=== PATIENT | female | born 1955 | race Caucasian/White ===

== ENCOUNTER 2020-04-05 14:13 | Inpatient (IN) ==
[2020-04-05] MEDS ORDERED: Naloxone 0.4 MG/ML INJ IVP PRN (17:29)
[2020-04-05 17:58] LABS: Adenovirus Not Detected (Not Detect); Coronavirus 229E Not Detected (Not Detect); Coronavirus HKU1 Not Detected (Not Detect); Coronavirus NL63 Not Detected (Not Detect); Coronavirus OC43 Not Detected (Not Detect)
[2020-04-05 17:59] LABS: Bordetella Pertussis Not Detected (Not Detect); Chlamydophila pneumoniae Not Detected (Not Detect); Human Metapneumovirus Not Detected (Not Detect); Human Rhinovirus/Enterovirus Not Detected (Not Detect); Influenza A Subtype 2009 H1 Not Detected (Not Detect); Influenza B Not Detected (Not Detect); Mycoplasma pneumoniae Not Detected (Not Detect); Parainfluenza Virus 1 Not Detected (Not Detect); Parainfluenza Virus 2 Not Detected (Not Detect); Parainfluenza Virus 3 Not Detected (Not Detect); Parainfluenza Virus 4 Not Detected (Not Detect); Respiratory Syncytial Virus Not Detected (Not Detect)
[2020-04-05] MEDS ORDERED: Ipratropium/Albuterol Neb 3 ML IH ONE (18:02)
[2020-04-05] MEDS ORDERED: Ipratropium/Albuterol Neb 3 ML IH PRN (18:02)
[2020-04-05 19:57] LABS: ABG Base Excess 6 mEq/L (-2 to 3); ABG HCO3 30 mEq/L (21-27); ABG Oxygen Saturation 85 % (95-98); ABG PCO2 43 mmHg (35-45); ABG PH 7.45 pH Units (7.32-7.45); ABG PO2 48 mmHg (85-104); ABG TCO2 32 mEq/L (20-26)
[2020-04-05] MEDS ORDERED: Vancomycin 500 MG in 0.9 % Sodium Chloride 250 ML IVPB SCH (20:00)
[2020-04-05] MEDS: 0.9 % Sodium Chloride 1,000 ML IVC SCH (20:21)
[2020-04-05] MEDS: Piperacillin/Tazobactam 3.375 GM in 0.9 % Sodium Chloride Mini Bag 100 ML IVPB SCH (20:21)
[2020-04-05] MEDS ORDERED: Acetaminophen 325 MG TABLET PO PRN (20:39)
[2020-04-05] MEDS ORDERED: Ketorolac 15 MG/ML VIAL IVP PRN (20:40)
[2020-04-05] MEDS ORDERED: Melatonin 3 MG TABLET PO PRN (23:56)
[2020-04-06] MEDS: Piperacillin/Tazobactam 3.375 GM in 0.9 % Sodium Chloride Mini Bag 100 ML IVPB SCH ×3 (01:34→17:09)
[2020-04-06 03:42] LABS: Hematocrit 29.4 % (35.3-44.9); Hemoglobin 8.7 g/dL (11.5-15.4); Mean Corpuscular HGB Conc 29.6 g/dL (31.6-35.5); Mean Corpuscular Hemoglobin 26.3 pg (28.0-33.3); Mean Corpuscular Volume 88.8 fL (83.0-100.0); Mean Platelet Volume 10.6 fL (9.4-12.4); Platelet Count 283 K/mcL (140-400); Red Blood Count 3.31 M/mcL (3.82-4.97); Red Cell Distribution Width 16.1 % (11.5-14.5); White Blood Count 11.3 K/mcL (4.3-11.1)
[2020-04-06 03:54] LABS: Alanine Aminotransferase 9 Units/L (7-52); Albumin 2.2 g/dL (3.5-5.7); Albumin/Globulin Ratio 0.7 (1.1-2.2); Alkaline Phosphatase 47 Units/L (34-104); Aspartate Amino Transferase 14 Units/L (13-39); BUN/Creatinine Ratio 54 (6-26); Bilirubin,Total 0.7 mg/dL (0.3-1.0); Blood Urea Nitrogen 25 mg/dL (8-23); Calcium 11.2 mg/dL (8.6-10.3); Carbon Dioxide 30 mEq/L (23-29); Chloride 104 mEq/L (98-107); Globulin 3.3 g/dL (2.4-3.5); Glucose 82 mg/dL (70-105); Magnesium 1.8 mg/dL (1.6-2.6); Osmolality,Calculated 299 (280-300); Phosphorous 2.8 mg/dL (2.7-4.5); Potassium 2.9 mEq/L (3.5-5.1); Sodium 143 mEq/L (136-145); Total Protein 5.5 g/dL (6.4-8.9); eGFR For African Americans > 60 (> 60); eGFR For Non-African Americans > 60 (> 60)
[2020-04-06 04:46] LABS: Lymphocytes # 0.7 K/mcL (0.6-4.6); Monocytes # 0.2 K/mcL (0.0-1.3); Neutrophils # 10.4 K/mcL (1.6-8.9); Platelet Estimate Normal (Normal); Toxic Granulation Present (Not Present)
[2020-04-06] MEDS: 0.9 % Sodium Chloride 1,000 ML IVC SCH ×2 (08:27→14:44)
[2020-04-06] MEDS ORDERED: *HR* HYDROmorphone PF 0.5 MG/0.5 ML SYRINGE IVP PRN (09:49)
[2020-04-06] MEDS ORDERED: Ondansetron 4 MG/2 ML VIAL IVP ONE (09:49)
[2020-04-06] MEDS ORDERED: Lidocaine -MPF 4% 5 ML AMPUL ONE (10:14)
[2020-04-06] MEDS ORDERED: *HR* Propofol 200 MG/20 ML VIAL IVP ONE (10:14)
[2020-04-06] MEDS ORDERED: Lidocaine -MPF 2% 2 ML VIAL ONE (10:14)
[2020-04-06] MEDS ORDERED: *HR* Succinylcholine 200 MG/10 ML VIAL IVP ONE (10:14)
[2020-04-06] MEDS ORDERED: *HR* FentaNYL (PF) 100 MCG/2 ML VIAL ONE (10:14)
[2020-04-06] MEDS ORDERED: Ondansetron 4 MG/2 ML VIAL ONE (10:14)
[2020-04-06] MEDS ORDERED: *HR* OxyCODONE Immed Rel 5 MG TABLET PO PRN ×3 (11:52→15:16)
[2020-04-06] MEDS ORDERED: Nicotine 21 MG PATCH.TD24 TD SCH (13:00)
[2020-04-06] MEDS ORDERED: Megestrol Acetate 400 MG/10 ML UDC PO SCH (14:00)
[2020-04-06] MEDS ORDERED: Naloxone 0.4 MG/ML INJ IVP PRN (14:02)
[2020-04-06] MEDS ORDERED: Melatonin 3 MG TABLET PO PRN (14:02)
[2020-04-06] MEDS ORDERED: Gadolinium Contrast Agent (WT Based) IV PRN (14:28)
[2020-04-06] MEDS: Acetaminophen 325 MG TABLET PO PRN (14:43)
[2020-04-06] MEDS: Nicotine 21 MG PATCH.TD24 TD SCH (17:09)
[2020-04-06] MEDS ORDERED: Isovue-370 500 ML BOTTLE IVP ONE (17:21)
[2020-04-06] MEDS: Ipratropium/Albuterol Neb 3 ML IH PRN (18:38)
[2020-04-06] MEDS: Ketorolac 15 MG/ML VIAL IVP PRN (21:49)
[2020-04-07] MEDS: MethylPREDNISolone 40 MG/ML VIAL IVP SCH ×2 (00:25→09:07)
[2020-04-07] MEDS: Acetaminophen 325 MG TABLET PO PRN (01:10)
[2020-04-07] MEDS: Piperacillin/Tazobactam 3.375 GM in 0.9 % Sodium Chloride Mini Bag 100 ML IVPB SCH ×3 (01:11→17:54)
[2020-04-07 06:19] LABS: Basophils % 0.1 %; Hematocrit 33.5 % (35.3-44.9); Hemoglobin 9.7 g/dL (11.5-15.4); Immature Granulocytes % 0.6 % (0-4); Lymphocytes # 0.5 K/mcL (0.6-4.6); Mean Corpuscular Volume 89.8 fL (83.0-100.0); Mean Platelet Volume 9.9 fL (9.4-12.4); Monocytes # 0.2 K/mcL (0.0-1.3); Monocytes % 1.1 %; Neutrophils # 16.3 K/mcL (1.6-8.9); Platelet Count 328 K/mcL (140-400); Red Blood Count 3.73 M/mcL (3.82-4.97); Red Cell Distribution Width 16.3 % (11.5-14.5); Segmented Neutrophils % 95.2 %
[2020-04-07 06:20] LABS: White Blood Count 17.1 K/mcL (4.3-11.1)
[2020-04-07 06:43] LABS: BUN/Creatinine Ratio 59 (6-26); Blood Urea Nitrogen 26 mg/dL (8-23); Carbon Dioxide 27 mEq/L (23-29); Chloride 109 mEq/L (98-107); Glucose 163 mg/dL (70-105); Osmolality,Calculated 298 (280-300); Sodium 140 mEq/L (136-145); eGFR For African Americans > 60 (> 60); eGFR For Non-African Americans > 60 (> 60)
[2020-04-07] MEDS: 0.9 % Sodium Chloride 1,000 ML IVC SCH ×2 (07:38→22:08)
[2020-04-07] MEDS: Nicotine 21 MG PATCH.TD24 TD SCH (09:06)
[2020-04-07] MEDS: Megestrol Acetate 400 MG/10 ML UDC PO SCH (09:06)
[2020-04-07 09:28] LABS: Vancomycin,Trough 6 mcg/mL (5-10)
[2020-04-07] MEDS ORDERED: Ondansetron 4 MG/2 ML VIAL IVP PRN (10:53)
[2020-04-07] MEDS ORDERED: Saliva Stimulant 100ml BOTTLE PO PRN (10:53)
[2020-04-07] MEDS ORDERED: polyethylene glycoL 3350 17 GM POWD.PACK PO PRN (10:54)
[2020-04-07] MEDS: Ketorolac 15 MG/ML VIAL IVP PRN (11:40)
[2020-04-07] MEDS: Sennosides/Docusate Sodium TABLET PO SCH ×2 (11:52→22:15)
[2020-04-08] MEDS: Piperacillin/Tazobactam 3.375 GM in 0.9 % Sodium Chloride Mini Bag 100 ML IVPB SCH ×3 (02:28→18:26)
[2020-04-08 07:34] LABS: Basophils % 0.2 %; Hematocrit 33.1 % (35.3-44.9); Hemoglobin 9.6 g/dL (11.5-15.4); Immature Granulocytes % 0.8 % (0-4); Lymphocytes # 0.9 K/mcL (0.6-4.6); Lymphocytes % 3.9 %; Mean Corpuscular Hemoglobin 26.9 pg (28.0-33.3); Mean Corpuscular Volume 92.7 fL (83.0-100.0); Mean Platelet Volume 10.3 fL (9.4-12.4); Monocytes # 0.6 K/mcL (0.0-1.3); Monocytes % 2.7 %; Platelet Count 399 K/mcL (140-400); Red Blood Count 3.57 M/mcL (3.82-4.97); Red Cell Distribution Width 16.4 % (11.5-14.5); Segmented Neutrophils % 92.4 %; White Blood Count 23.8 K/mcL (4.3-11.1)
[2020-04-08 07:44] LABS: Basophils # 0.1 K/mcL (0.0-0.2)
[2020-04-08 07:56] LABS: Hypochromasia Present (Not Present); Platelet Estimate Normal (Normal); Toxic Granulation Present (Not Present)
[2020-04-08 07:57] LABS: BUN/Creatinine Ratio 58 (6-26); Blood Urea Nitrogen 22 mg/dL (8-23); Calcium 11.4 mg/dL (8.6-10.3); Carbon Dioxide 25 mEq/L (23-29); Chloride 110 mEq/L (98-107); Glucose 111 mg/dL (70-105); Magnesium 1.7 mg/dL (1.6-2.6); Osmolality,Calculated 302 (280-300); Phosphorous 2.3 mg/dL (2.7-4.5); Potassium 3.6 mEq/L (3.5-5.1); Sodium 144 mEq/L (136-145); eGFR For African Americans > 60 (> 60); eGFR For Non-African Americans > 60 (> 60)
[2020-04-08] MEDS: Nicotine 21 MG PATCH.TD24 TD SCH (09:02)
[2020-04-08] MEDS: Sennosides/Docusate Sodium TABLET PO SCH ×2 (09:02→22:01)
[2020-04-08] MEDS: 0.9 % Sodium Chloride 1,000 ML IVC SCH (09:02)
[2020-04-08] MEDS: Megestrol Acetate 400 MG/10 ML UDC PO SCH (09:02)
[2020-04-09] MEDS ORDERED: traZODone 50 MG TABLET PO PRN (00:50)
[2020-04-09] MEDS ORDERED: *HR* LORazepam 2 MG/ML VIAL IVP ONE (01:40)
[2020-04-09] MEDS: Piperacillin/Tazobactam 3.375 GM in 0.9 % Sodium Chloride Mini Bag 100 ML IVPB SCH ×3 (01:46→20:11)
[2020-04-09 03:20] LABS: Hematocrit 20.4 % (35.3-44.9); Mean Corpuscular HGB Conc 28.9 g/dL (31.6-35.5); Mean Corpuscular Hemoglobin 27.4 pg (28.0-33.3); Mean Corpuscular Volume 94.9 fL (83.0-100.0); Platelet Count 169 K/mcL (140-400); Red Blood Count 2.15 M/mcL (3.82-4.97); Red Cell Distribution Width 16.9 % (11.5-14.5); White Blood Count 13.6 K/mcL (4.3-11.1)
[2020-04-09 03:25] LABS: Hemoglobin 5.9 g/dL (11.5-15.4)
[2020-04-09 03:41] LABS: BUN/Creatinine Ratio 43 (6-26); Blood Urea Nitrogen 18 mg/dL (8-23); Carbon Dioxide 30 mEq/L (23-29); Chloride 114 mEq/L (98-107); Glucose 87 mg/dL (70-105); Osmolality,Calculated 307 (280-300); Phosphorous 2.5 mg/dL (2.7-4.5); Sodium 148 mEq/L (136-145); eGFR For African Americans > 60 (> 60); eGFR For Non-African Americans > 60 (> 60)
[2020-04-09 04:27] LABS: Hematocrit 25.9 % (35.3-44.9); Hemoglobin 7.5 g/dL (11.5-15.4); Mean Corpuscular Hemoglobin 26.3 pg (28.0-33.3); Mean Corpuscular Volume 90.9 fL (83.0-100.0); Mean Platelet Volume 9.8 fL (9.4-12.4); Platelet Count 267 K/mcL (140-400); Red Blood Count 2.85 M/mcL (3.82-4.97); Red Cell Distribution Width 16.6 % (11.5-14.5); White Blood Count 14.5 K/mcL (4.3-11.1)
[2020-04-09] MEDS: Sennosides/Docusate Sodium TABLET PO SCH ×2 (09:09→20:11)
[2020-04-09] MEDS: Megestrol Acetate 400 MG/10 ML UDC PO SCH (09:09)
[2020-04-09] MEDS: 0.9 % Sodium Chloride 1,000 ML IVC SCH (09:10)
[2020-04-09] MEDS: Nicotine 21 MG PATCH.TD24 TD SCH (10:39)
[2020-04-10] MEDS: Piperacillin/Tazobactam 3.375 GM in 0.9 % Sodium Chloride Mini Bag 100 ML IVPB SCH ×3 (01:15→23:53)
[2020-04-10 05:59] LABS: Basophils % 0.1 %; Hematocrit 37.5 % (35.3-44.9); Immature Granulocytes % 0.5 % (0-4); Lymphocytes # 0.9 K/mcL (0.6-4.6); Lymphocytes % 4.1 %; Mean Corpuscular HGB Conc 29.9 g/dL (31.6-35.5); Mean Corpuscular Hemoglobin 26.7 pg (28.0-33.3); Mean Corpuscular Volume 89.5 fL (83.0-100.0); Mean Platelet Volume 10.5 fL (9.4-12.4); Monocytes # 0.6 K/mcL (0.0-1.3); Monocytes % 2.8 %; Neutrophils # 19.9 K/mcL (1.6-8.9); Platelet Count 417 K/mcL (140-400); Red Blood Count 4.19 M/mcL (3.82-4.97); Red Cell Distribution Width 16.7 % (11.5-14.5); Segmented Neutrophils % 92.5 %; White Blood Count 21.5 K/mcL (4.3-11.1)
[2020-04-10 06:09] LABS: Hemoglobin 11.2 g/dL (11.5-15.4)
[2020-04-10 06:30] LABS: BUN/Creatinine Ratio 26 (6-26); Blood Urea Nitrogen 11 mg/dL (8-23); Calcium 10.8 mg/dL (8.6-10.3); Carbon Dioxide 29 mEq/L (23-29); Chloride 105 mEq/L (98-107); Glucose 141 mg/dL (70-105); Osmolality,Calculated 300 (280-300); Potassium 2.7 mEq/L (3.5-5.1); Sodium 144 mEq/L (136-145); eGFR For African Americans > 60 (> 60); eGFR For Non-African Americans > 60 (> 60)
[2020-04-10] MEDS: Megestrol Acetate 400 MG/10 ML UDC PO SCH (09:05)
[2020-04-10] MEDS: Nicotine 21 MG PATCH.TD24 TD SCH (09:08)
[2020-04-10] MEDS: Sennosides/Docusate Sodium TABLET PO SCH ×2 (09:23→20:47)
[2020-04-10 13:24] LABS: INR 1.3; Prothrombin Time 14.8 Seconds (9.4-12.1)
[2020-04-10 13:27] LABS: Activated Partial Thrombo Time 30.6 Seconds (26.0-36.0)
[2020-04-10] MEDS: *HR* Heparin 5,000 UNIT/ML VIAL SQ SCH ×2 (14:39→20:47)
[2020-04-10] MEDS ORDERED: Potassium Chloride Elixir 20 MEQ/15 ML UDC PO ONE (14:47)
[2020-04-10 15:05] LABS: Lactate Dehydrogenase 181 Units/L (140-271); Total Protein 6.3 g/dL (6.4-8.9)
[2020-04-10 15:29] LABS: Appearance of Pleural Fl Hazy (Clear)
[2020-04-10 15:38] LABS: RBC,Pleural Fluid 4000 RBC/mcL
[2020-04-10 16:28] LABS: Glucose,Pleural Fluid 111 mg/dL (No Ref Range); LDH,Pleural Fluid 211 Units/L (No Ref Range); Total Protein,Pleural Fluid < 3.0 g/dL
[2020-04-10 18:03] LABS: Basophils,Pleural Fluid 0 %; Eosinophils,Pleural Fluid 0 %
[2020-04-11 01:21] LABS: Basophils % 0.1 %; Hematocrit 30.8 % (35.3-44.9); Immature Granulocytes % 0.5 % (0-4); Lymphocytes # 0.7 K/mcL (0.6-4.6); Lymphocytes % 3.4 %; Mean Corpuscular HGB Conc 29.9 g/dL (31.6-35.5); Mean Platelet Volume 10.1 fL (9.4-12.4); Monocytes # 0.5 K/mcL (0.0-1.3); Monocytes % 2.6 %; Neutrophils # 19.2 K/mcL (1.6-8.9); Platelet Count 307 K/mcL (140-400); Red Blood Count 3.54 M/mcL (3.82-4.97); Red Cell Distribution Width 16.5 % (11.5-14.5); Segmented Neutrophils % 93.4 %; White Blood Count 20.5 K/mcL (4.3-11.1)
[2020-04-11 01:29] LABS: Hemoglobin 9.2 g/dL (11.5-15.4)
[2020-04-11 01:38] LABS: BUN/Creatinine Ratio 30 (6-26); Blood Urea Nitrogen 8 mg/dL (8-23); Calcium 10.1 mg/dL (8.6-10.3); Carbon Dioxide 29 mEq/L (23-29); Chloride 106 mEq/L (98-107); Glucose 122 mg/dL (70-105); Osmolality,Calculated 292 (280-300); Potassium 3.2 mEq/L (3.5-5.1); Sodium 141 mEq/L (136-145); eGFR For African Americans > 60 (> 60); eGFR For Non-African Americans > 60 (> 60)
[2020-04-11] MEDS: *HR* Heparin 5,000 UNIT/ML VIAL SQ SCH ×3 (06:20→21:56)
[2020-04-11] MEDS: Megestrol Acetate 400 MG/10 ML UDC PO SCH (07:55)
[2020-04-11] MEDS: Sennosides/Docusate Sodium TABLET PO SCH (07:55)
[2020-04-11] MEDS: Nicotine 21 MG PATCH.TD24 TD SCH (07:55)
[2020-04-11] MEDS: Piperacillin/Tazobactam 3.375 GM in 0.9 % Sodium Chloride Mini Bag 100 ML IVPB SCH ×2 (07:55→16:44)
[2020-04-11] MEDS: Ipratropium/Albuterol Neb 3 ML IH PRN (08:59)
[2020-04-11] MEDS ORDERED: methylPREDNISolone 125 MG/2 ML VIAL IVP STA (09:08)
[2020-04-11] MEDS ORDERED: methylPREDNISolone 125 MG/2 ML VIAL ONE (09:09)
[2020-04-11] MEDS ORDERED: Morphine Sulfate 2 MG/ML SYRINGE IVP ONE (09:23)
[2020-04-11 09:41] LABS: Hematocrit 36.7 % (35.3-44.9); Hemoglobin 10.8 g/dL (11.5-15.4); Mean Corpuscular HGB Conc 29.4 g/dL (31.6-35.5); Mean Corpuscular Hemoglobin 26.9 pg (28.0-33.3); Mean Corpuscular Volume 91.3 fL (83.0-100.0); Platelet Count 478 K/mcL (140-400); Red Blood Count 4.02 M/mcL (3.82-4.97); Red Cell Distribution Width 16.7 % (11.5-14.5)
[2020-04-11 09:44] LABS: White Blood Count 31.8 K/mcL (4.3-11.1)
[2020-04-11] MEDS ORDERED: Morphine Sulfate 2 MG/ML SYRINGE IVP PRN (09:52)
[2020-04-11 10:07] LABS: BUN/Creatinine Ratio 19 (6-26); Blood Urea Nitrogen 8 mg/dL (8-23); Calcium 10.4 mg/dL (8.6-10.3); Carbon Dioxide 27 mEq/L (23-29); Chloride 104 mEq/L (98-107); Glucose 198 mg/dL (70-105); Osmolality,Calculated 298 (280-300); Potassium 3.2 mEq/L (3.5-5.1); Sodium 142 mEq/L (136-145); Troponin I 0.06 ng/mL (< 0.04); eGFR For African Americans > 60 (> 60); eGFR For Non-African Americans > 60 (> 60)
[2020-04-11 10:12] LABS: Lymphocytes # 2.2 K/mcL (0.6-4.6); Monocytes # 1.3 K/mcL (0.0-1.3); Neutrophils # 28.3 K/mcL (1.6-8.9)
[2020-04-11 10:13] LABS: Platelet Estimate Normal (Normal)
[2020-04-11 10:14] LABS: Toxic Granulation Present (Not Present)
[2020-04-11] MEDS: *HR* LORazepam 2 MG/ML VIAL IVP PRN (13:06)
[2020-04-11] MEDS: Morphine Sulfate 2 MG/ML SYRINGE IVP SCH ×2 (16:44→20:03)
[2020-04-11] MEDS: *HR* LORazepam 2 MG/ML VIAL IVP SCH ×2 (18:25→21:56)
[2020-04-11] MEDS ORDERED: Aminoglycoside Consult 1 EACH MC ONE (22:45)
[2020-04-12] MEDS: Piperacillin/Tazobactam 3.375 GM in 0.9 % Sodium Chloride Mini Bag 100 ML IVPB SCH (00:12)
[2020-04-12] MEDS: Morphine Sulfate 2 MG/ML SYRINGE IVP SCH ×2 (00:13→04:05)
[2020-04-12] MEDS: *HR* LORazepam 2 MG/ML VIAL IVP SCH ×5 (02:11→18:19)
[2020-04-12] MEDS: *HR* Heparin 5,000 UNIT/ML VIAL SQ SCH (06:28)
[2020-04-12 06:54] VITALS: BP 95/56
[2020-04-12] MEDS ORDERED: FentaNYL (PF) 1,000 MCG/100 ML IV.SOLN IVC SCH (09:15)
[2020-04-12] MEDS: *HR* LORazepam 2 MG/ML VIAL IVP PRN ×2 (09:52→19:16)
[2020-04-12] MEDS: Haloperidol Lactate 5 MG/ML VIAL IVP SCH ×2 (14:12→14:17)
[2020-04-12] MEDS: *HR* FentaNYL (PF) 100 MCG/2 ML VIAL IVP PRN ×2 (18:19→19:16)
== END 2020-04-12 22:46 | disposition expired | DRG 871 ==
LOC: CDU → SUATTDRO 17:16 → 2ANU 18:28
PROVIDERS: ADMIT Internal Medicine; ATTEND Student in an Organized Health Care Education/Training Program